=== PATIENT | female | born 1950 | race Two or more races ===

== ENCOUNTER 2020-12-30 19:06 | Inpatient (IN) | payer MEDICAID, OTHER ==
[~2020-12-30] VITALS: Ht 160 cm; Wt 67.3 kg
[~2020-12-30 19:06] MED LIST: FERR324T5 PO; FOSF3PAC PO; IBUP100T9 PO; METF500T17 PO; OMEP-110 PO; POTA20TA6 PO; SUCR1TAB33 PO
--- NOTE | 2020-12-30 19:10 | NUR ---
PT BIB [facility]. PT HAD SYNCOPAL EVENT IN BATHROOM AND HAS VOMITED X3. FAMILY WAS AT PT'S SIDE. PT ARRIVES LETHARGIC AND DIAPHORETIC BUT PT ANSWERS ALL ORIENTATION QUESTIONS CORRECTLY. PT CO HEADACHE. FAMILY STATED THAT PT WAS IN ER IN NOVEMBER AND A TUMOR WAS FOUND ON BLADDER. SINCE THEN, PT HAS HAD FREQUENT FALLS WITH INCREASING WEAKNESS. PT HAS BEEN COMPLAINING OF PAINFUL URINATION AND INCONTINENCE OVER THE PAST 3 DAYS. PT DENIES ANY CP OR SOB.
[2020-12-30] MEDS ORDERED: SODIUM CHLORIDE FLUSH 10ML SYR IVF ONE (19:30)
[2020-12-30 19:34] LABS: BASOPHILS % (AUTO) 1 % (0-1); EOSINOPHILS % (AUTO) 2 % (1-7); LYMPHOCYTES % (AUTO) 20 % (22-44); MEAN CORPUSCULAR HEMOGLOBIN 28.2 pg (27.0-34.8); MEAN CORPUSCULAR HGB CONC 33.9 g/dL (32.4-35.8); MEAN PLATELET VOLUME 7.6 fL (7.4-10.4); MONOCYTES % (AUTO) 5 % (2-9); NEUTROPHILS % (AUTO) 73 % (42-75); PLATELET COUNT 433 x10^3/uL (130-400); RED BLOOD COUNT 3.28 x10^6/uL (3.82-5.3); RED CELL DISTRIBUTION WIDTH 16.4 % (9.6-15.2)
[2020-12-30 19:46] LABS: ALANINE AMINOTRANSFERASE 13 U/L (12-78); ANION GAP 8 mmol/L (5-15); CALCIUM 7.6 mg/dL (8.5-10.1); CHLORIDE 111 mmol/L (98-107); CREATININE 0.89 mg/dL (0.55-1.02)
[2020-12-30 19:48] LABS: ALKALINE PHOSPHATASE 216 U/L (45-117); BILIRUBIN,TOTAL 0.2 mg/dL (0.2-1.0)
--- NOTE | 2020-12-30 19:50 | NUR ---
PT STRAIGHT CATHED FOR UA. BRIEF CHANGED. PT TOLERATED WELL.
[2020-12-30 20:15] LABS: MICROSCOPIC AUTO
--- NOTE | 2020-12-30 20:22 | NUR ---
PT TO CT
[2020-12-30 20:51] LABS: TROPONIN I 0.104 ng/mL (0.000-0.045)
[2020-12-30] MEDS ORDERED: ONDANSETRON 2MG/ML, 2ML ONE (20:56)
[2020-12-30] MEDS ORDERED: CEFTRIAXONE 1,000 MG in DEXTROSE 5% 50 ML IVPB ONE (21:00)
[2020-12-30] MEDS ORDERED: ONDANSETRON 2MG/ML, 2ML IVPush ONE (21:00)
[2020-12-30] MEDS ORDERED: SODIUM CHLORIDE 0.9% 1,000ML IVBOLUS ONE (21:00)
--- NOTE | 2020-12-30 21:03 | NUR ---
1st contact c pt. resting on cart in nad c eyes closed, rr even non labored. daughter at bs. pt given zofran for episode of vomiting. pt & family aware of plan to admit. deny any needs. will ctm.
[2020-12-30] MEDS ORDERED: ASPIRIN 81 MG TABLET CHEW PO ONE (21:30)
--- NOTE | 2020-12-30 22:02 | NUR ---
pt changed, purewick inplace. denies any needs. will ctm.
[2020-12-31 00:29] VITALS: BP 117/85
[2020-12-31] MEDS ORDERED: GUAIFENESIN/DM 200-20MG, 10ML UDC PO PRN (00:30)
[2020-12-31] MEDS ORDERED: DOCUSATE 100 MG CAPSULE PO PRN (00:30)
[2020-12-31] MEDS ORDERED: ZOLPIDEM 5MG TABLET PO PRN (00:30)
[2020-12-31] MEDS ORDERED: ENOXAPARIN 40 MG/0.4 ML SQ SCH (00:30)
[2020-12-31] MEDS ORDERED: morphine SULFATE 10 MG/ML, 1ML IVPush PRN (00:30)
[2020-12-31] MEDS ORDERED: HYDROcodone/APAP 5/325 TABLET PO PRN (00:30)
[2020-12-31] MEDS ORDERED: ENALAPRILAT 1.25 MG/ML, 2ML IVPush PRN ×2 (00:30→21:00)
[2020-12-31] MEDS ORDERED: BACLOFEN 10 MG TABLET PO PRN (00:30)
[2020-12-31] MEDS: ONDANSETRON 2MG/ML, 2ML IVPush PRN ×2 (00:53→11:34)
[2020-12-31] MEDS: LACTATED RINGERS 1,000 ML IV SCH ×2 (00:55→16:52)
[2020-12-31] MEDS ORDERED: HEPARIN 25,000 UNITS/250ML PMX 250 ML IV PRN (01:00)
[2020-12-31] MEDS ORDERED: NITROGLYCERIN 0.4 MG BOTTLE (25 TABS) SL PRN (01:00)
[2020-12-31] MEDS ORDERED: PLEASE ENTER WEIGHT MC SCH (01:00)
[2020-12-31] MEDS ORDERED: NITROGLYCERIN 0.4 MG/SPRAY SL PRN (01:00)
[2020-12-31] MEDS ORDERED: HEPARIN 5,000 UNITS/ML, 1ML IV ONE (01:00)
[2020-12-31] MEDS ORDERED: HEPARIN 5,000 UNITS/ML, 1ML IV PRN (01:00)
[2020-12-31] MEDS: ACETAMINOPHEN 325 MG TABLET PO PRN (01:37)
[2020-12-31 05:37] LABS: BASOPHILS % (AUTO) 0 % (0-1); EOSINOPHILS % (AUTO) 0 % (1-7); LYMPHOCYTES % (AUTO) 12 % (22-44); MEAN CORPUSCULAR HEMOGLOBIN 27.8 pg (27.0-34.8); MEAN CORPUSCULAR HGB CONC 33.6 g/dL (32.4-35.8); MEAN PLATELET VOLUME 7.8 fL (7.4-10.4); MONOCYTES % (AUTO) 3 % (2-9); NEUTROPHILS % (AUTO) 85 % (42-75); PLATELET COUNT 381 x10^3/uL (130-400); RED BLOOD COUNT 3.17 x10^6/uL (3.82-5.3); RED CELL DISTRIBUTION WIDTH 16.4 % (9.6-15.2)
[2020-12-31 05:47] LABS: CHLORIDE 109 mmol/L (98-107)
[2020-12-31] MEDS: SUCRALFATE 1 GM TABLET PO SCH ×4 (06:00→20:50)
[2020-12-31] MEDS: OMEPRAZOLE 20 MG CAPSULE.DR PO SCH ×2 (06:00→16:53)
[2020-12-31 06:03] LABS: ANION GAP 9 mmol/L (5-15); CALCIUM 7.3 mg/dL (8.5-10.1); CREATININE 0.64 mg/dL (0.55-1.02)
[2020-12-31 08:13] VITALS: BP 103/70
[2020-12-31] MEDS ORDERED: metFORMIN 500 MG TABLET PO SCH (09:00)
[2020-12-31 14:26] VITALS: BP 106/67
[2020-12-31 20:44] VITALS: BP 104/69
[2020-12-31] MEDS: ATORVASTATIN 40 MG TABLET PO SCH (20:50)
[2020-12-31] MEDS: INSULIN LISPRO 100 UNITS/ML, PEN SQ-INSULIN SCH (21:29)
[2020-12-31] MEDS: CEFTRIAXONE 2 GM in DEXTROSE 5% 50 ML IVPB SCH (23:46)
[2021-01-01] MEDS: OMEPRAZOLE 20 MG CAPSULE.DR PO SCH ×2 (04:26→17:59)
[2021-01-01] MEDS: SUCRALFATE 1 GM TABLET PO SCH ×4 (04:26→21:00)
[2021-01-01] MEDS: LACTATED RINGERS 1,000 ML IV SCH (04:27)
[2021-01-01] MEDS: ASPIRIN 81 MG TABLET CHEW PO SCH (04:27)
[2021-01-01] MEDS: INSULIN LISPRO 100 UNITS/ML, PEN SQ-INSULIN SCH ×3 (04:31→22:30)
[2021-01-01] MEDS ORDERED: OMNIPAQUE 350 MG/ML, 75ML BOTTLE ONE (05:39)
[2021-01-01 06:50] LABS: BASOPHILS % (AUTO) 0 % (0-1); EOSINOPHILS % (AUTO) 0 % (1-7); LYMPHOCYTES % (AUTO) 11 % (22-44); MEAN CORPUSCULAR HGB CONC 34.2 g/dL (32.4-35.8); MEAN PLATELET VOLUME 7.9 fL (7.4-10.4); MONOCYTES % (AUTO) 4 % (2-9); NEUTROPHILS % (AUTO) 85 % (42-75); PLATELET COUNT 339 x10^3/uL (130-400); RED BLOOD COUNT 3.25 x10^6/uL (3.82-5.3); RED CELL DISTRIBUTION WIDTH 16.3 % (9.6-15.2)
[2021-01-01 06:55] LABS: ANION GAP 9 mmol/L (5-15); CALCIUM 7.3 mg/dL (8.5-10.1); CHLORIDE 105 mmol/L (98-107); CREATININE 0.71 mg/dL (0.55-1.02)
[2021-01-01] MEDS ORDERED: SODIUM CHLORIDE 3% 500 ML IV PRN ×2 (08:00→15:30)
[2021-01-01] MEDS ORDERED: CLOPIDOGREL 75 MG TABLET PO SCH (09:00)
[2021-01-01] MEDS ORDERED: ALBUMIN HUMAN 5% 500 ML IV ONE (12:30)
[2021-01-01] MEDS ORDERED: SODIUM CHLORIDE 0.9% 1,000ML IVBOLUS ONE (14:30)
[2021-01-01 15:02] LABS: CHOL/HDL RATIO 1.6; LDL/HDL RATIO 0.3 (0.5-3.0)
[2021-01-01] MEDS ORDERED: OMNIPAQUE 350 MG/ML, 100ML BOTTLE ONE (16:27)
[2021-01-01] MEDS: ATORVASTATIN 40 MG TABLET PO SCH (21:00)
[2021-01-01] MEDS ORDERED: MIDAZOLAM 1 MG/ML, 5ML ONE (21:15)
[2021-01-01] MEDS ORDERED: FENTANYL PF 100 MCG/2ML ONE (21:15)
[2021-01-01] MEDS ORDERED: VERAPAMIL 2.5 MG/ML, 2ML ONE (21:15)
[2021-01-01] MEDS ORDERED: TICAGRELOR 90 MG TABLET ONE (21:15)
[2021-01-01] MEDS ORDERED: LIDOCAINE-MPF 1%, 5ML ONE (21:15)
[2021-01-01] MEDS ORDERED: BIVALIRUDIN 250 MG ONE (21:15)
[2021-01-01] MEDS ORDERED: HEPARIN 1,000 UNITS/ML, 10ML ONE (21:15)
[2021-01-01 21:19] LABS: TROPONIN I 0.595 ng/mL (0.000-0.045)
[2021-01-01] MEDS: CEFTRIAXONE 2 GM in DEXTROSE 5% 50 ML IVPB SCH (23:04)
[2021-01-02 02:43] LABS: TROPONIN I 0.535 ng/mL (0.000-0.045)
[2021-01-02] MEDS ORDERED: SODIUM CHLORIDE 3% 500 ML IV PRN ×2 (03:30→17:30)
[2021-01-02] MEDS: OMEPRAZOLE 20 MG CAPSULE.DR PO SCH ×2 (05:23→16:02)
[2021-01-02] MEDS: ASPIRIN 81 MG TABLET CHEW PO SCH (05:23)
[2021-01-02] MEDS: SUCRALFATE 1 GM TABLET PO SCH ×4 (05:23→21:05)
[2021-01-02] MEDS: INSULIN LISPRO 100 UNITS/ML, PEN SQ-INSULIN SCH ×4 (06:33→21:00)
[2021-01-02 07:41] LABS: ANION GAP 8 mmol/L (5-15); CREATININE 0.55 mg/dL (0.55-1.02); TROPONIN I 0.485 ng/mL (0.000-0.045)
[2021-01-02 07:42] LABS: CHLORIDE 116 mmol/L (98-107)
[2021-01-02 07:44] LABS: CALCIUM 6.7 mg/dL (8.5-10.1)
[2021-01-02 08:08] LABS: TROPONIN I 0.454 ng/mL (0.000-0.045)
[2021-01-02] MEDS ORDERED: MAGNESIUM SULFATE PMX 4GM/100M 100 ML IVPB ONE (10:00)
[2021-01-02] MEDS ORDERED: POTASSIUM CHLORIDE PMX 100 ML IV SCH (13:30)
[2021-01-02] MEDS ORDERED: POTASSIUM CHLORIDE 40 MEQ in SODIUM CHLORIDE 0.9% 100 ML IV ONE (14:00)
[2021-01-02] MEDS ORDERED: ALBUMIN HUMAN 5% 500 ML IV ONE ×2 (14:30→18:30)
[2021-01-02] MEDS ORDERED: POTASSIUM CHLORIDE 20 MEQ TAB.ER.PRT PO SCH (17:00)
[2021-01-02] MEDS: ATORVASTATIN 40 MG TABLET PO SCH (21:06)
[2021-01-02] MEDS: CEFTRIAXONE 2 GM in DEXTROSE 5% 50 ML IVPB SCH (23:11)
[2021-01-03] MEDS ORDERED: SODIUM CHLORIDE 0.9% 250 ML IV SCH ×2 (01:00→01:30)
[2021-01-03] MEDS ORDERED: SODIUM CHLORIDE 3% 500 ML IV PRN ×2 (02:30→04:30)
[2021-01-03 03:59] LABS: ANION GAP 7 mmol/L (5-15); CALCIUM 7.3 mg/dL (8.5-10.1); CHLORIDE 125 mmol/L (98-107); CREATININE 0.66 mg/dL (0.55-1.02)
[2021-01-03] MEDS: INSULIN LISPRO 100 UNITS/ML, PEN SQ-INSULIN SCH ×4 (05:35→21:00)
[2021-01-03] MEDS: SUCRALFATE 1 GM TABLET PO SCH (05:47)
[2021-01-03] MEDS: ASPIRIN 81 MG TABLET CHEW PO SCH (05:47)
[2021-01-03] MEDS: OMEPRAZOLE 20 MG CAPSULE.DR PO SCH ×2 (05:47→16:57)
[2021-01-03] MEDS: POTASSIUM CHLORIDE 20 MEQ TAB.ER.PRT PO SCH ×2 (08:59→16:58)
[2021-01-03] MEDS ORDERED: FUROSEMIDE 20 MG/2 ML IV ONE (09:00)
[2021-01-03] MEDS: CARVEDILOL 3.125 MG TABLET PO SCH ×2 (11:02→16:57)
[2021-01-03] MEDS: SODIUM CHLORIDE 3% 500 ML IV PRN (11:02)
[2021-01-03] MEDS: ATORVASTATIN 40 MG TABLET PO SCH (20:55)
[2021-01-03] MEDS ORDERED: ALBUMIN HUMAN 5% 500 ML IV ONE (22:30)
[2021-01-03] MEDS: CEFTRIAXONE 2 GM in DEXTROSE 5% 50 ML IVPB SCH (22:31)
[2021-01-04] MEDS: ASPIRIN 81 MG TABLET CHEW PO SCH (05:08)
[2021-01-04] MEDS: CARVEDILOL 3.125 MG TABLET PO SCH ×2 (05:08→17:02)
[2021-01-04] MEDS: OMEPRAZOLE 20 MG CAPSULE.DR PO SCH ×2 (05:08→17:02)
[2021-01-04 06:27] LABS: ANION GAP 7 mmol/L (5-15); CALCIUM 7.8 mg/dL (8.5-10.1); CHLORIDE 134 mmol/L (98-107); CREATININE 0.88 mg/dL (0.55-1.02)
[2021-01-04] MEDS: INSULIN LISPRO 100 UNITS/ML, PEN SQ-INSULIN SCH ×4 (06:32→20:36)
[2021-01-04] MEDS: SODIUM BICARBONATE 650 MG TABLET PO SCH ×2 (07:58→20:36)
[2021-01-04] MEDS: SODIUM CHLORIDE 3% 500 ML IV PRN (08:53)
[2021-01-04] MEDS: ONDANSETRON 2MG/ML, 2ML IVPush PRN (10:27)
[2021-01-04] MEDS ORDERED: FUROSEMIDE 20 MG/2 ML ONE (13:20)
[2021-01-04] MEDS ORDERED: FUROSEMIDE 20 MG/2 ML IV ONE (13:30)
[2021-01-04] MEDS: ATORVASTATIN 40 MG TABLET PO SCH (20:36)
[2021-01-05] MEDS: CEFTRIAXONE 2 GM in DEXTROSE 5% 50 ML IVPB SCH (00:06)
[2021-01-05 04:23] LABS: ANION GAP 4 mmol/L (5-15); CALCIUM 8.1 mg/dL (8.5-10.1); CHLORIDE 137 mmol/L (98-107); CREATININE 1.09 mg/dL (0.55-1.02)
[2021-01-05 04:38] LABS: BASOPHILS % (AUTO) 1 % (0-1); EOSINOPHILS % (AUTO) 2 % (1-7); LYMPHOCYTES % (AUTO) 16 % (22-44); MEAN CORPUSCULAR HEMOGLOBIN 27.3 pg (27.0-34.8); MEAN CORPUSCULAR HGB CONC 32.4 g/dL (32.4-35.8); MEAN PLATELET VOLUME 8.4 fL (7.4-10.4); MONOCYTES % (AUTO) 7 % (2-9); NEUTROPHILS % (AUTO) 75 % (42-75); PLATELET COUNT 248 x10^3/uL (130-400); RED BLOOD COUNT 2.31 x10^6/uL (3.82-5.3); RED CELL DISTRIBUTION WIDTH 17.1 % (9.6-15.2)
[2021-01-05] MEDS: SODIUM CHLORIDE 3% 500 ML IV PRN (05:32)
[2021-01-05] MEDS: ASPIRIN 81 MG TABLET CHEW PO SCH (06:00)
[2021-01-05] MEDS: CARVEDILOL 3.125 MG TABLET PO SCH ×2 (06:00→18:04)
[2021-01-05] MEDS: INSULIN LISPRO 100 UNITS/ML, PEN SQ-INSULIN SCH ×4 (06:01→21:00)
[2021-01-05] MEDS: OMEPRAZOLE 20 MG CAPSULE.DR PO SCH ×2 (06:05→16:04)
[2021-01-05] MEDS ORDERED: SODIUM CHLORIDE 0.9% 250 ML IV SCH (07:30)
[2021-01-05] MEDS: SODIUM BICARBONATE 650 MG TABLET PO SCH ×2 (08:44→21:25)
[2021-01-05] MEDS ORDERED: SODIUM CHLORIDE 3% 500 ML IV PRN ×2 (09:00→21:08)
[2021-01-05 11:00] VITALS: BP 115/69
[2021-01-05] MEDS ORDERED: FUROSEMIDE 20 MG/2 ML IV ONE (11:00)
[2021-01-05 11:15] VITALS: BP 115/69
[2021-01-05 12:15] VITALS: BP 117/69
[2021-01-05] MEDS: LISINOPRIL 5 MG TABLET PO SCH (12:37)
[2021-01-05 13:00] VITALS: BP 123/72
[2021-01-05 13:18] VITALS: BP 124/73
[2021-01-05 14:22] VITALS: BP 112/53
[2021-01-05] MEDS: ATORVASTATIN 40 MG TABLET PO SCH (21:25)
[2021-01-06] MEDS: CEFTRIAXONE 2 GM in DEXTROSE 5% 50 ML IVPB SCH (00:15)
[2021-01-06 04:24] LABS: BASOPHILS % (AUTO) 1 % (0-1); EOSINOPHILS % (AUTO) 2 % (1-7); LYMPHOCYTES % (AUTO) 14 % (22-44); MEAN CORPUSCULAR HEMOGLOBIN 28.2 pg (27.0-34.8); MEAN CORPUSCULAR HGB CONC 33.4 g/dL (32.4-35.8); MEAN PLATELET VOLUME 8.1 fL (7.4-10.4); MONOCYTES % (AUTO) 7 % (2-9); NEUTROPHILS % (AUTO) 77 % (42-75); PLATELET COUNT 285 x10^3/uL (130-400); RED BLOOD COUNT 2.93 x10^6/uL (3.82-5.3); RED CELL DISTRIBUTION WIDTH 16.5 % (9.6-15.2)
[2021-01-06 04:35] LABS: ANION GAP 3 mmol/L (5-15); CALCIUM 8.1 mg/dL (8.5-10.1); CHLORIDE 141 mmol/L (98-107); CREATININE 0.95 mg/dL (0.55-1.02)
[2021-01-06] MEDS: INSULIN LISPRO 100 UNITS/ML, PEN SQ-INSULIN SCH ×4 (05:57→19:40)
[2021-01-06] MEDS: ASPIRIN 81 MG TABLET CHEW PO SCH (05:57)
[2021-01-06] MEDS: CARVEDILOL 3.125 MG TABLET PO SCH ×2 (05:57→17:39)
[2021-01-06] MEDS: OMEPRAZOLE 20 MG CAPSULE.DR PO SCH ×2 (05:57→16:02)
[2021-01-06] MEDS: LISINOPRIL 5 MG TABLET PO SCH (11:44)
[2021-01-06] MEDS: SODIUM BICARBONATE 650 MG TABLET PO SCH ×2 (11:44→19:36)
[2021-01-06] MEDS: ACETAMINOPHEN 325 MG TABLET PO PRN (17:39)
[2021-01-06] MEDS: ATORVASTATIN 40 MG TABLET PO SCH (19:36)
[2021-01-07 04:47] LABS: BASOPHILS % (AUTO) 1 % (0-1); EOSINOPHILS % (AUTO) 3 % (1-7); LYMPHOCYTES % (AUTO) 14 % (22-44); MEAN CORPUSCULAR HEMOGLOBIN 28.4 pg (27.0-34.8); MEAN CORPUSCULAR HGB CONC 33.6 g/dL (32.4-35.8); MEAN PLATELET VOLUME 8.4 fL (7.4-10.4); MONOCYTES % (AUTO) 7 % (2-9); NEUTROPHILS % (AUTO) 77 % (42-75); PLATELET COUNT 256 x10^3/uL (130-400); RED CELL DISTRIBUTION WIDTH 17.1 % (9.6-15.2)
[2021-01-07 04:59] LABS: ALANINE AMINOTRANSFERASE 15 U/L (12-78); ALBUMIN 2.1 g/dL (3.4-5.0); ANION GAP 5 mmol/L (5-15); CALCIUM 8.1 mg/dL (8.5-10.1); CHLORIDE 138 mmol/L (98-107); CREATININE 0.72 mg/dL (0.55-1.02)
[2021-01-07 05:01] LABS: ALKALINE PHOSPHATASE 98 U/L (45-117); BILIRUBIN,TOTAL 0.3 mg/dL (0.2-1.0); TOTAL PROTEIN 5.4 g/dL (6.4-8.2)
[2021-01-07] MEDS: OMEPRAZOLE 20 MG CAPSULE.DR PO SCH ×2 (06:10→16:42)
[2021-01-07] MEDS: CARVEDILOL 3.125 MG TABLET PO SCH ×2 (06:10→18:08)
[2021-01-07] MEDS: ASPIRIN 81 MG TABLET CHEW PO SCH (06:10)
[2021-01-07] MEDS: INSULIN LISPRO 100 UNITS/ML, PEN SQ-INSULIN SCH ×4 (06:10→21:00)
[2021-01-07] MEDS ORDERED: POTASSIUM CHLORIDE 20 MEQ TAB.ER.PRT PO ONE (07:00)
[2021-01-07] MEDS: LISINOPRIL 5 MG TABLET PO SCH (08:27)
[2021-01-07] MEDS: SODIUM BICARBONATE 650 MG TABLET PO SCH ×2 (08:27→21:16)
[2021-01-07] MEDS: ONDANSETRON 2MG/ML, 2ML IVPush PRN (12:20)
[2021-01-07] MEDS ORDERED: DEXTROSE 5% 1,000 ML IV SCH (13:30)
[2021-01-07] MEDS ORDERED: PINK LADY ENEMA 490 ML BOTTLE PR ONE (15:30)
[2021-01-07 20:49] VITALS: BP 110/70
[2021-01-07] MEDS: LACTULOSE 20 GM/30 ML UDC PO SCH (21:16)
[2021-01-07] MEDS: ATORVASTATIN 40 MG TABLET PO SCH (21:16)
[2021-01-08 01:34] VITALS: BP 118/69
[2021-01-08 05:44] VITALS: BP 127/74
[2021-01-08] MEDS: CARVEDILOL 3.125 MG TABLET PO SCH ×2 (05:49→17:27)
[2021-01-08] MEDS: ASPIRIN 81 MG TABLET CHEW PO SCH (05:49)
[2021-01-08] MEDS: OMEPRAZOLE 20 MG CAPSULE.DR PO SCH ×2 (05:49→17:27)
[2021-01-08 06:23] LABS: ANION GAP 8 mmol/L (5-15); CALCIUM 8.3 mg/dL (8.5-10.1); CHLORIDE 132 mmol/L (98-107); CREATININE 0.77 mg/dL (0.55-1.02)
[2021-01-08 07:35] VITALS: BP 101/57
[2021-01-08] MEDS ORDERED: POTASSIUM CHLORIDE 20 MEQ TAB.ER.PRT PO ONE (08:30)
[2021-01-08] MEDS: SODIUM BICARBONATE 650 MG TABLET PO SCH ×2 (10:19→21:51)
[2021-01-08] MEDS: LISINOPRIL 5 MG TABLET PO SCH (10:20)
[2021-01-08] MEDS: LACTULOSE 20 GM/30 ML UDC PO SCH ×2 (10:21→21:51)
[2021-01-08] MEDS: INSULIN LISPRO 100 UNITS/ML, PEN SQ-INSULIN SCH ×4 (10:30→21:00)
[2021-01-08 13:09] VITALS: BP 116/72
[2021-01-08] MEDS ORDERED: DEXTROSE 5% 1,000 ML IV SCH (17:00)
[2021-01-08 17:12] VITALS: BP 126/51
[2021-01-08 20:24] VITALS: BP 133/72
[2021-01-08] MEDS: ATORVASTATIN 40 MG TABLET PO SCH (21:51)
[2021-01-09 01:23] VITALS: BP 124/67
[2021-01-09 05:06] VITALS: BP 129/56
[2021-01-09] MEDS: OMEPRAZOLE 20 MG CAPSULE.DR PO SCH (05:09)
[2021-01-09] MEDS: ASPIRIN 81 MG TABLET CHEW PO SCH (05:09)
[2021-01-09] MEDS: CARVEDILOL 3.125 MG TABLET PO SCH ×2 (05:09→16:07)
[2021-01-09] MEDS: INSULIN LISPRO 100 UNITS/ML, PEN SQ-INSULIN SCH ×4 (07:00→22:00)
[2021-01-09 07:32] VITALS: BP 122/64
[2021-01-09 07:51] LABS: ANION GAP 5 mmol/L (5-15); CALCIUM 8.2 mg/dL (8.5-10.1); CHLORIDE 135 mmol/L (98-107); CREATININE 0.79 mg/dL (0.55-1.02)
[2021-01-09] MEDS: LACTULOSE 20 GM/30 ML UDC PO SCH ×2 (09:43→19:55)
[2021-01-09] MEDS: LISINOPRIL 5 MG TABLET PO SCH (09:45)
[2021-01-09 13:04] VITALS: BP 113/74
[2021-01-09 16:06] VITALS: BP 136/84
[2021-01-09] MEDS: DEXTROSE 5% 1,000 ML IV SCH (16:07)
[2021-01-09] MEDS: PANTOPRAZOLE GRAN. PKT 40 MG PO SCH (16:07)
[2021-01-09] MEDS: ATORVASTATIN 40 MG TABLET PO SCH (19:55)
[2021-01-09 20:16] VITALS: BP 135/75
[2021-01-10 02:23] VITALS: BP 126/72
[2021-01-10] MEDS: PANTOPRAZOLE GRAN. PKT 40 MG PO SCH ×2 (05:12→17:54)
[2021-01-10] MEDS: ASPIRIN 81 MG TABLET CHEW PO SCH (05:12)
[2021-01-10 05:14] VITALS: BP 121/70
[2021-01-10] MEDS: CARVEDILOL 3.125 MG TABLET PO SCH ×2 (05:18→17:54)
[2021-01-10] MEDS: INSULIN LISPRO 100 UNITS/ML, PEN SQ-INSULIN SCH ×4 (07:00→20:49)
[2021-01-10 07:31] VITALS: BP 124/67
[2021-01-10 07:50] LABS: ANION GAP 7 mmol/L (5-15); CALCIUM 8.5 mg/dL (8.5-10.1); CHLORIDE 127 mmol/L (98-107); CREATININE 0.75 mg/dL (0.55-1.02)
[2021-01-10] MEDS: DEXTROSE 5% 1,000 ML IV SCH ×2 (08:00→16:44)
[2021-01-10] MEDS: LACTULOSE 20 GM/30 ML UDC PO SCH ×2 (08:37→20:36)
[2021-01-10] MEDS: LISINOPRIL 5 MG TABLET PO SCH (08:37)
[2021-01-10 13:22] VITALS: BP 116/72
[2021-01-10] MEDS ORDERED: HEPARIN 25,000 UNITS/250ML PMX 250 ML IV PRN (14:30)
[2021-01-10] MEDS ORDERED: HEPARIN 5,000 UNITS/ML, 1ML IV PRN (14:30)
[2021-01-10 20:19] VITALS: BP 112/69
[2021-01-10] MEDS: ATORVASTATIN 40 MG TABLET PO SCH (20:36)
[2021-01-10 22:30] LABS: BASOPHILS % (AUTO) 0 % (0-1); EOSINOPHILS % (AUTO) 3 % (1-7); LYMPHOCYTES % (AUTO) 17 % (22-44); MEAN CORPUSCULAR HEMOGLOBIN 28.2 pg (27.0-34.8); MEAN CORPUSCULAR HGB CONC 33.2 g/dL (32.4-35.8); MEAN PLATELET VOLUME 9.2 fL (7.4-10.4); MONOCYTES % (AUTO) 7 % (2-9); NEUTROPHILS % (AUTO) 72 % (42-75); PLATELET COUNT 246 x10^3/uL (130-400); RED CELL DISTRIBUTION WIDTH 17.1 % (9.6-15.2)
[2021-01-11 01:43] VITALS: BP 127/66
[2021-01-11 05:24] VITALS: BP 125/76
[2021-01-11] MEDS: ASPIRIN 81 MG TABLET CHEW PO SCH (05:40)
[2021-01-11] MEDS: CARVEDILOL 3.125 MG TABLET PO SCH ×2 (05:40→17:27)
[2021-01-11] MEDS: PANTOPRAZOLE GRAN. PKT 40 MG PO SCH ×2 (05:40→15:54)
[2021-01-11 06:29] VITALS: BP 118/72
[2021-01-11] MEDS: INSULIN LISPRO 100 UNITS/ML, PEN SQ-INSULIN SCH ×4 (07:00→21:00)
[2021-01-11 07:04] LABS: BASOPHILS % (AUTO) 0 % (0-1); EOSINOPHILS % (AUTO) 3 % (1-7); LYMPHOCYTES % (AUTO) 17 % (22-44); MEAN CORPUSCULAR HEMOGLOBIN 28.3 pg (27.0-34.8); MEAN CORPUSCULAR HGB CONC 33.2 g/dL (32.4-35.8); MEAN PLATELET VOLUME 9.1 fL (7.4-10.4); MONOCYTES % (AUTO) 7 % (2-9); NEUTROPHILS % (AUTO) 73 % (42-75); PLATELET COUNT 261 x10^3/uL (130-400); RED BLOOD COUNT 2.91 x10^6/uL (3.82-5.3); RED CELL DISTRIBUTION WIDTH 16.8 % (9.6-15.2)
[2021-01-11 07:10] LABS: ANION GAP 3 mmol/L (5-15); CALCIUM 7.8 mg/dL (8.5-10.1); CHLORIDE 125 mmol/L (98-107)
[2021-01-11] MEDS: LISINOPRIL 5 MG TABLET PO SCH (09:20)
[2021-01-11] MEDS: LACTULOSE 20 GM/30 ML UDC PO SCH ×2 (09:20→21:00)
[2021-01-11] MEDS: RIVAROXABAN 15 MG TABLET PO SCH ×2 (11:10→17:27)
[2021-01-11] MEDS ORDERED: RIVAROXABAN 10 MG TABLET ONE (11:30)
[2021-01-11] MEDS: DEXTROSE 5% 1,000 ML IV SCH (12:40)
[2021-01-11 13:25] VITALS: BP 120/64
[2021-01-11 20:16] VITALS: BP 115/73
[2021-01-11] MEDS: ATORVASTATIN 40 MG TABLET PO SCH (21:19)
[2021-01-12 01:12] VITALS: BP 107/63
[2021-01-12] MEDS: ASPIRIN 81 MG TABLET CHEW PO SCH (05:19)
[2021-01-12] MEDS: CARVEDILOL 3.125 MG TABLET PO SCH ×2 (05:19→17:25)
[2021-01-12] MEDS: PANTOPRAZOLE GRAN. PKT 40 MG PO SCH ×2 (05:21→17:20)
[2021-01-12 05:56] LABS: ANION GAP 4 mmol/L (5-15); CALCIUM 7.7 mg/dL (8.5-10.1); CHLORIDE 121 mmol/L (98-107)
[2021-01-12 06:45] VITALS: BP 123/65
[2021-01-12] MEDS: INSULIN LISPRO 100 UNITS/ML, PEN SQ-INSULIN SCH ×4 (07:00→20:06)
[2021-01-12] MEDS: LISINOPRIL 5 MG TABLET PO SCH (09:24)
[2021-01-12] MEDS: LACTULOSE 20 GM/30 ML UDC PO SCH ×2 (09:25→20:13)
[2021-01-12] MEDS: RIVAROXABAN 15 MG TABLET PO SCH ×2 (09:25→17:20)
[2021-01-12] MEDS: DEXTROSE 5% 1,000 ML IV SCH (09:32)
--- NOTE | 2021-01-12 12:01 | NUR ---
Posted activity sheet and informed patient and nursing staff Addendum: 01/12/21 at 1202 by Odin Early PT Amended: Links added.
[2021-01-12 13:04] VITALS: BP 140/72
[2021-01-12] MEDS: ATORVASTATIN 40 MG TABLET PO SCH (20:13)
[2021-01-12 21:00] VITALS: BP 111/71
[2021-01-13] VITALS (7 sets, daily range): BP systolic 87–143; BP diastolic 40–74
[2021-01-13] MEDS: PANTOPRAZOLE GRAN. PKT 40 MG PO SCH ×2 (05:59→16:58)
[2021-01-13] MEDS: CARVEDILOL 3.125 MG TABLET PO SCH ×2 (05:59→18:10)
[2021-01-13] MEDS: ASPIRIN 81 MG TABLET CHEW PO SCH (05:59)
[2021-01-13] MEDS: INSULIN LISPRO 100 UNITS/ML, PEN SQ-INSULIN SCH ×4 (07:00→20:10)
[2021-01-13] MEDS: LACTULOSE 20 GM/30 ML UDC PO SCH (09:30)
[2021-01-13] MEDS: RIVAROXABAN 15 MG TABLET PO SCH ×2 (09:30→16:58)
[2021-01-13] MEDS: LISINOPRIL 5 MG TABLET PO SCH (09:31)
[2021-01-13] MEDS: ACETAMINOPHEN 325 MG TABLET PO PRN (20:10)
[2021-01-13] MEDS: ATORVASTATIN 40 MG TABLET PO SCH (20:10)
[2021-01-14 00:19] VITALS: BP 116/69
[2021-01-14] MEDS: ASPIRIN 81 MG TABLET CHEW PO SCH (05:49)
[2021-01-14] MEDS: CARVEDILOL 3.125 MG TABLET PO SCH ×2 (05:49→17:02)
[2021-01-14] MEDS: PANTOPRAZOLE GRAN. PKT 40 MG PO SCH ×2 (05:49→15:44)
[2021-01-14 06:29] LABS: ALANINE AMINOTRANSFERASE 14 U/L (12-78); ALBUMIN 1.9 g/dL (3.4-5.0); ANION GAP 10 mmol/L (5-15); CALCIUM 7.9 mg/dL (8.5-10.1); CHLORIDE 115 mmol/L (98-107)
[2021-01-14 06:31] LABS: ALKALINE PHOSPHATASE 129 U/L (45-117); BILIRUBIN,TOTAL 0.6 mg/dL (0.2-1.0); CREATININE 0.73 mg/dL (0.55-1.02); TOTAL PROTEIN 5.4 g/dL (6.4-8.2)
[2021-01-14 06:50] VITALS: BP 101/44
[2021-01-14] MEDS: INSULIN LISPRO 100 UNITS/ML, PEN SQ-INSULIN SCH ×4 (07:49→20:36)
[2021-01-14] MEDS: RIVAROXABAN 15 MG TABLET PO SCH ×2 (09:50→16:56)
[2021-01-14] MEDS: LISINOPRIL 5 MG TABLET PO SCH (09:51)
[2021-01-14 12:27] VITALS: BP 132/68
[2021-01-14] MEDS: LACTULOSE 10 GM/15 ML UDC PO SCH ×2 (12:59→20:29)
[2021-01-14] MEDS ORDERED: SODIUM CHLORIDE 0.9% 1,000 ML IV ONE (16:30)
[2021-01-14 18:32] VITALS: BP 151/68
[2021-01-14] MEDS: ATORVASTATIN 40 MG TABLET PO SCH (20:29)
[2021-01-15 01:31] VITALS: BP 147/62
[2021-01-15] MEDS: PANTOPRAZOLE GRAN. PKT 40 MG PO SCH ×2 (05:37→16:47)
[2021-01-15] MEDS: ASPIRIN 81 MG TABLET CHEW PO SCH (05:37)
[2021-01-15] MEDS: CARVEDILOL 3.125 MG TABLET PO SCH ×2 (05:38→18:15)
[2021-01-15 07:58] VITALS: BP 121/70
[2021-01-15] MEDS: INSULIN LISPRO 100 UNITS/ML, PEN SQ-INSULIN SCH ×4 (07:58→20:42)
[2021-01-15] MEDS: LACTULOSE 10 GM/15 ML UDC PO SCH ×2 (08:59→20:40)
[2021-01-15] MEDS: LISINOPRIL 5 MG TABLET PO SCH (08:59)
[2021-01-15] MEDS: RIVAROXABAN 15 MG TABLET PO SCH ×2 (08:59→16:47)
[2021-01-15 14:25] VITALS: BP 109/62
[2021-01-15 20:09] VITALS: BP 109/44
[2021-01-15] MEDS: ATORVASTATIN 40 MG TABLET PO SCH (20:40)
[2021-01-16 02:55] VITALS: BP 95/48
[2021-01-16] MEDS: CARVEDILOL 3.125 MG TABLET PO SCH ×2 (05:57→17:31)
[2021-01-16] MEDS: ASPIRIN 81 MG TABLET CHEW PO SCH (05:57)
[2021-01-16] MEDS: PANTOPRAZOLE GRAN. PKT 40 MG PO SCH ×2 (05:57→16:02)
[2021-01-16] MEDS: INSULIN LISPRO 100 UNITS/ML, PEN SQ-INSULIN SCH ×4 (07:11→20:06)
[2021-01-16 07:12] VITALS: BP 113/64
[2021-01-16] MEDS: LISINOPRIL 5 MG TABLET PO SCH (07:39)
[2021-01-16] MEDS: LACTULOSE 10 GM/15 ML UDC PO SCH ×2 (07:39→19:32)
[2021-01-16] MEDS: RIVAROXABAN 15 MG TABLET PO SCH ×2 (07:40→16:02)
[2021-01-16 15:08] VITALS: BP 133/74
[2021-01-16] MEDS: ATORVASTATIN 40 MG TABLET PO SCH (20:12)
[2021-01-16 21:32] VITALS: BP 123/75
[2021-01-17 00:56] VITALS: BP 136/66
[2021-01-17 05:25] VITALS: BP 126/75
[2021-01-17] MEDS: ASPIRIN 81 MG TABLET CHEW PO SCH (05:33)
[2021-01-17] MEDS: CARVEDILOL 3.125 MG TABLET PO SCH ×2 (05:33→17:59)
[2021-01-17] MEDS: PANTOPRAZOLE GRAN. PKT 40 MG PO SCH ×2 (05:34→17:57)
[2021-01-17] MEDS: INSULIN LISPRO 100 UNITS/ML, PEN SQ-INSULIN SCH ×4 (07:00→20:17)
[2021-01-17 07:03] VITALS: BP 106/65
[2021-01-17] MEDS: RIVAROXABAN 15 MG TABLET PO SCH ×2 (08:12→17:58)
[2021-01-17] MEDS: LACTULOSE 10 GM/15 ML UDC PO SCH ×2 (09:00→20:17)
[2021-01-17 09:30] VITALS: BP 134/73
[2021-01-17] MEDS: LISINOPRIL 5 MG TABLET PO SCH (09:49)
[2021-01-17 13:39] VITALS: BP 136/66
[2021-01-17] MEDS: ATORVASTATIN 40 MG TABLET PO SCH (20:16)
[2021-01-18] MEDS: CARVEDILOL 3.125 MG TABLET PO SCH ×2 (06:00→18:25)
[2021-01-18] MEDS: PANTOPRAZOLE GRAN. PKT 40 MG PO SCH ×2 (06:00→16:48)
[2021-01-18] MEDS: ASPIRIN 81 MG TABLET CHEW PO SCH (06:00)
[2021-01-18] MEDS: INSULIN LISPRO 100 UNITS/ML, PEN SQ-INSULIN SCH ×3 (07:00→16:00)
[2021-01-18 07:59] VITALS: BP 165/72
[2021-01-18] MEDS: RIVAROXABAN 15 MG TABLET PO SCH ×2 (08:00→18:25)
[2021-01-18] MEDS: LACTULOSE 10 GM/15 ML UDC PO SCH (08:01)
[2021-01-18] MEDS: LISINOPRIL 5 MG TABLET PO SCH (08:01)
[2021-01-18 13:25] LABS: BASOPHILS % (AUTO) 1 % (0-1); EOSINOPHILS % (AUTO) 3 % (1-7); LYMPHOCYTES % (AUTO) 21 % (22-44); MEAN CORPUSCULAR HEMOGLOBIN 28.1 pg (27.0-34.8); MEAN CORPUSCULAR HGB CONC 33.3 g/dL (32.4-35.8); MEAN PLATELET VOLUME 8.9 fL (7.4-10.4); MONOCYTES % (AUTO) 6 % (2-9); NEUTROPHILS % (AUTO) 70 % (42-75); PLATELET COUNT 321 x10^3/uL (130-400); RED BLOOD COUNT 2.62 x10^6/uL (3.82-5.3); RED CELL DISTRIBUTION WIDTH 16.8 % (9.6-15.2)
[2021-01-18 13:49] VITALS: BP 155/62
[2021-01-18] MEDS ORDERED: CARV3.1212 PO (14:36)
[2021-01-18] MEDS ORDERED: RIVA15TA PO (14:36)
[2021-01-18] MEDS ORDERED: ASPI-963 PO (14:36)
[2021-01-18] MEDS ORDERED: LISI5TAB7 PO (14:36)
[2021-01-18] MEDS ORDERED: ATOR40TA78 PO (14:36)
[2021-01-18 18:24] VITALS: BP 122/73
== END 2021-01-18 19:04 | disposition home or self-care (01) | DRG 45 ==
LOC: ED 20:55 → EDIP 21:04 → ED 21:13 → 5SO 22:32 → CCU 01-01 00:22 → 4WST 01-07 19:54
PROVIDERS: ADMIT Internal Medicine; ATTEND Hospitalist
PROC: 4A023N7 Measurement of Cardiac Sampling and Pressure, Left Heart, Percutaneous Approach (ICD-10-PCS; principal; 2021-01-01)
PROC: B2111ZZ Fluoroscopy of Multiple Coronary Arteries using Low Osmolar Contrast (ICD-10-PCS; 2021-01-01)
PROC: B2151ZZ Fluoroscopy of Left Heart using Low Osmolar Contrast (ICD-10-PCS; 2021-01-01)
PROC: B44LZZZ Ultrasonography of Femoral Artery (ICD-10-PCS; 2021-01-01)
PROC: 02HV33Z Insertion of Infusion Device into Superior Vena Cava, Percutaneous Approach (ICD-10-PCS; 2021-01-01)
PROC: B548ZZA Ultrasonography of Superior Vena Cava, Guidance (ICD-10-PCS; 2021-01-01)
PROC: 30233N1 Transfusion of Nonautologous Red Blood Cells into Peripheral Vein, Percutaneous Approach (ICD-10-PCS; 2021-01-05)
DX: I63.9 Cerebral infarction, unspecified (principal); I21.4 Non-ST elevation (NSTEMI) myocardial infarction; N17.0 Acute kidney failure with tubular necrosis; G93.40 Encephalopathy, unspecified; I50.43 Acute on chronic combined systolic (congestive) and diastolic (congestive) heart failure; S42.202A Unspecified fracture of upper end of left humerus, initial encounter for closed fracture; D64.9 Anemia, unspecified; B96.1 Klebsiella pneumoniae [K. pneumoniae] as the cause of diseases classified elsewhere; E87.0 Hyperosmolality and hypernatremia; E11.65 Type 2 diabetes mellitus with hyperglycemia; E87.2 Acidosis; E55.9 Vitamin D deficiency, unspecified; E87.6 Hypokalemia; E87.8 Other disorders of electrolyte and fluid balance, not elsewhere classified; I27.20 Pulmonary hypertension, unspecified; I42.8 Other cardiomyopathies; J32.4 Chronic pansinusitis; K25.9 Gastric ulcer, unspecified as acute or chronic, without hemorrhage or perforation; N25.81 Secondary hyperparathyroidism of renal origin; N39.0 Urinary tract infection, site not specified; K21.9 Gastro-esophageal reflux disease without esophagitis; W18.39XA Other fall on same level, initial encounter; Z79.899 Other long term (current) drug therapy; Z82.49 Family history of ischemic heart disease and other diseases of the circulatory system; Z83.3 Family history of diabetes mellitus; Z85.51 Personal history of malignant neoplasm of bladder; Z87.11 Personal history of peptic ulcer disease; Z90.49 Acquired absence of other specified parts of digestive tract; Y93.89 Activity, other specified; Y92.89 Other specified places as the place of occurrence of the external cause; Y99.8 Other external cause status
CPT/HCPCS: 36415; 36573; 70450; 70470; 70496; 70498; 70553; 71045; 71250; 74018; 74176; 74230; 80048; 80053; 80061; 81001; 82306; 82962; 83010; 83036; 83735; 83970; 84100; 84295; 84439; 84443; 84481; 84484; 85014; 85018; 85025; 85049; 85520; 86850; 86900; 86923; 87077; 87081; 87086; 87186; 93005; 93306; 93458; 93880; 99156; 99285; C1769; C1894; G0378; J0583; J0696; J1644; J2250; J2405; J3010; J3480; J7070; P9045; Q9957; Q9967; 92523-GN; C1751; C8924; J1815; J1940; J3475; J7030; J7050; J7120; P9016